=== PATIENT | female | born 1965 | race Caucasian/White ===

== ENCOUNTER 2018-03-31 09:04 | Observation (INO) ==
[2018-03-31] MEDS ORDERED: MORPHINE 4 MG/1 ML VIAL IV STA (09:51)
[2018-03-31] MEDS ORDERED: ONDANSETRON 4 MG/2 ML VIAL IV STA (09:51)
[2018-03-31] MEDS ORDERED: NITROGLYCERIN 2% OINT 1 INCH/GM PACK TOP STA (09:51)
[2018-03-31] MEDS ORDERED: ASPIRIN 325 MG TABLET PO STA (09:51)
[2018-03-31 10:22] LABS: Basophils # 0.1 10*3/uL (0.0-0.2); Basophils % 0.5 % (0.0-0.8); Eosinophils # 0.1 10*3/uL (0.0-0.87); Eosinophils % 0.7 % (0.00-10.9); Hematocrit 43.3 VOL% (35.7-47.0); Hemoglobin 14.7 GM/DL (12.0-16.0); Immature Granulocytes % 0.4 %; Immature Granulocytes Absolute 0.04 #; Lymphocytes # 2.3 10*3/uL (1.4-4.0); Mean Corpuscular HGB Conc 33.9 GM/DL (32-36); Mean Corpuscular Hemoglobin 32 PG (27-34); Mean Corpuscular Volume 93.7 FL (87-102); Mean Platelet Volume 9.4 FL (9.6-12.0); Monocytes # 0.6 10*3/uL (0.11-0.8); Monocytes % 5.8 % (1.7-12.7); Neutrophils # 6.5 10*3/uL (1.4-7.4); Neutrophils % 68.6 % (38.7-73.9); Platelet Count 251 T/CUMM (130-400); Red Blood Count 4.62 MC/CUMM (3.8-5.5); Red Cell Distribution Width 13.8 % (9.3-17.3); White Blood Count 9.5 T/CUMM (4-12)
[2018-03-31 10:31] LABS: Apearance,Urine CLOUDY (Clear); Bacteria,Urine Occasional /HPF (Few); Bilirubin,Urine Negative (Negative); Blood, Urine Negative (Negative); Glucose,Urine (UA) Negative (Negative); Hyaline Casts,Urine 50 /LPF (0-3); Ketones,Urine Negative (Negative); Mucus,Urine Occasional /LPF (Occasional); Nitrite,Urine Negative (Negative); Protein,Urine Negative; RBC,Urine 4 /HPF (0-4); Squamous Epithelial Cell,Urine Moderate /HPF (0-10); Urine Color Yellow (Yellow); Urine Specific Gravity 1.013 (1.001-1.035); Urine Urobilinogen < 2.0 EU/DL (0.2-1.0); WBC,Urine 9 /HPF (0-6)
[2018-03-31 10:32] LABS: PT Patient Result 10.1 SECS; Partial Thromboplastin Time 26.6 SECS (0-40)
[2018-03-31 10:42] LABS: Albumin 4.3 G/DL (3.4-5.0); Bilirubin,Total 0.4 MG/DL (0.2-1.0); Calcium 8.9 MG/DL (8.5-10.1); Osmolality,Calculated 261.7 MOS/KG (273-304); Potassium 3.8 MMOL/L (3.5-5.1); Total Protein 8.3 G/DL (6.4-8.3)
[2018-03-31 10:43] LABS: Barbiturates Screen,Urine Negative (Negative); Benzodiazepines Screen,Urine Positive (Negative); Cannabinoid Screen,Urine Positive (Negative); Opiate Screen,Urine Negative (Negative); Phencyclidine Screen,Urine Negative (Negative)
[2018-03-31] MEDS ORDERED: guaiFENesin/DM ER 600-30 MG TABLET PO PRN (12:30)
[2018-03-31] MEDS ORDERED: ACETAMINOPHEN 325 MG TABLET PO PRN (12:30)
[2018-03-31] MEDS ORDERED: traZODone 50 MG TABLET PO PRN (12:30)
[2018-03-31] MEDS ORDERED: ONDANSETRON 4 MG/2 ML VIAL IV PRN (12:30)
[2018-03-31] MEDS ORDERED: diphenhydrAMINE CAP 25 MG CAPSULE PO PRN (12:30)
[2018-03-31] MEDS ORDERED: DOCUSATE SODIUM 100 MG CAPSULE PO PRN (12:30)
[2018-03-31] MEDS ORDERED: tiZANidine 4 MG TABLET PO PRN (12:35)
[2018-03-31] MEDS ORDERED: ALPRAZolam 0.5 MG TABLET PO PRN (12:35)
[2018-03-31] MEDS ORDERED: cefTRIAXone 1,000 MG in SYRINGE 1 EACH IV SCH (14:00)
[2018-03-31] MEDS: SODIUM CHLORIDE 0.9% 1,000 ML IV SCH ×2 (14:19→19:12)
[2018-03-31] MEDS: PANTOPRAZOLE 40 MG TABLET PO SCH (14:35)
[2018-03-31] MEDS: amLODIPine 5 MG TABLET PO SCH (14:46)
[2018-04-01] MEDS: SODIUM CHLORIDE 0.9% 1,000 ML IV SCH (03:12)
[2018-04-01 06:05] LABS: Basophils # 0.1 10*3/uL (0.0-0.2); Basophils % 0.8 % (0.0-0.8); Eosinophils # 0.1 10*3/uL (0.0-0.87); Eosinophils % 1.7 % (0.00-10.9); Hematocrit 36.9 VOL% (35.7-47.0); Hemoglobin 12.5 GM/DL (12.0-16.0); Immature Granulocytes % 0.5 %; Immature Granulocytes Absolute 0.03 #; Lymphocytes # 2.6 10*3/uL (1.4-4.0); Lymphocytes % 41.2 % (21.3-54.2); Mean Corpuscular HGB Conc 33.9 GM/DL (32-36); Mean Corpuscular Hemoglobin 32 PG (27-34); Mean Corpuscular Volume 94.4 FL (87-102); Mean Platelet Volume 9.7 FL (9.6-12.0); Monocytes # 0.6 10*3/uL (0.11-0.8); Monocytes % 9.3 % (1.7-12.7); Neutrophils % 46.5 % (38.7-73.9); Platelet Count 218 T/CUMM (130-400); Red Blood Count 3.91 MC/CUMM (3.8-5.5); Red Cell Distribution Width 13.9 % (9.3-17.3); White Blood Count 6.3 T/CUMM (4-12)
[2018-04-01 06:46] LABS: Calcium 8.5 MG/DL (8.5-10.1); Osmolality,Calculated 275.5 MOS/KG (273-304); Risk Ratio 3.12; Thyroid Stimulating Hormone 4.67 uIU/ml (0.358-3.74); VLDL CHOLESTEROL 13.8 MG/DL
[2018-04-01] MEDS: PANTOPRAZOLE 40 MG TABLET PO SCH (09:14)
[2018-04-01] MEDS: amLODIPine 5 MG TABLET PO SCH (09:14)
[2018-04-01 11:27] VITALS: BP 103/69
[2018-04-01] MEDS ORDERED: ENOXAPARIN 40 MG/0.4 ML SYRINGE SUBCUT SCH (21:00)
== END 2018-04-01 13:30 | disposition home or self-care (01) ==
LOC: N.EDINP 09:04 → N.ED 09:04 → N.EDINP 14:46 → N.TELES 15:07
PROVIDERS: ADMIT Internal Medicine; ATTEND Internal Medicine

== ENCOUNTER 2022-01-19 09:39 | Inpatient (IN) ==
[2022-01-19] MEDS ORDERED: GLUCAGON 1 MG VIAL IM PRN (12:18)
[2022-01-19] MEDS ORDERED: ENOXAPARIN 40 MG/0.4 ML SYRINGE SUBCUT SCH (12:30)
[2022-01-19] MEDS ORDERED: DEXTROSE 10% 250 ML BAG IV PRN (12:30)
[2022-01-19] MEDS ORDERED: DEXTROSE 5% LACTATED RINGERS 1,000 ML IV SCH (12:30)
[2022-01-19] MEDS ORDERED: DEXTROSE 5% NACL 0.9% 1,000 ML IV SCH (12:30)
[2022-01-19 12:46] LABS: Basophils % 0.2 % (0.0-0.8); Immature Granulocytes % 0.4 %; Immature Granulocytes Absolute 0.02 #; Lymphocytes # 0.4 10*3/uL (1.4-4.0); Lymphocytes % 7.4 % (21.3-54.2); Mean Corpuscular HGB Conc 33.6 GM/DL (32-36); Mean Corpuscular Volume 90.6 FL (87-102); Mean Platelet Volume 10.4 FL (9.6-12.0); Monocytes % 9.3 % (1.7-12.7); Neutrophils % 82.7 % (38.7-73.9); Red Cell Distribution Width 14.5 % (9.3-17.3)
[2022-01-19 12:47] LABS: Hemoglobin 9.4 GM/DL (12.0-16.0); Red Blood Count 3.09 MC/CUMM (3.8-5.5); White Blood Count 5.3 T/CUMM (4-12)
[2022-01-19 12:48] LABS: Platelet Count 137 T/CUMM (130-400)
[2022-01-19 13:03] LABS: Albumin 2.2 G/DL (3.4-5.0); Bilirubin,Total 1.2 MG/DL (0.20-1.00); Calcium 8.2 MG/DL (8.5-10.1); Total Protein 4.8 G/DL (6.4-8.2)
[2022-01-19] MEDS ORDERED: MAGNESIUM SULF RIDER 2 GM/50 ML PREMIX IV ONE (13:14)
[2022-01-19] MEDS ORDERED: POTASSIUM CHLORIDE RIDER 20 MEQ/100 ML PREMIX IV ONE (13:14)
[2022-01-19] MEDS ORDERED: MAGNESIUM SULF RIDER 2 GM/50 ML PREMIX IV PRN (13:16)
[2022-01-19] MEDS ORDERED: POTASSIUM CHLORIDE RIDER 10 MEQ/100 ML PREMIX IV PRN (13:16)
[2022-01-19] MEDS ORDERED: MAGNESIUM SULF RIDER 4 GM/100 ML PREMIX IV PRN (13:16)
[2022-01-19 13:20] LABS: Arterial pH iSTAT 7.389 (7.35-7.45)
[2022-01-19 13:35] LABS: Band Neutrophils 16 % (0-10); Hypochromia Slight; Lymphocytes 8 % (20-55); Metamyelocytes 1 %; Segmented Neutrophils 69 % (50-85); Total Cells Counted 100
[2022-01-19 13:36] LABS: Microcytosis Slight; Platelet Estimate Adequate
[2022-01-19] MEDS ORDERED: POTASSIUM CHLORIDE RIDER 20 MEQ/100 ML PREMIX IV PRN (13:50)
[2022-01-19] MEDS ORDERED: MEROPENEM 2,000 MG in SODIUM CHLORIDE 0.9% 100 ML IV SCH (14:00)
[2022-01-19] MEDS ORDERED: VANCOMYCIN INJ 1,000 MG in SODIUM CHLORIDE 0.9% 250 ML IV SCH (14:00)
[2022-01-19] MEDS ORDERED: MEROPENEM 500 MG in SODIUM CHLORIDE 0.9% 100 ML IV SCH (15:00)
[2022-01-19] MEDS ORDERED: LORazepam 2 MG/1 ML VIAL IV PRN (15:36)
[2022-01-19] MEDS: MORPHINE 2 MG/1 ML SYRINGE IV PRN (15:52)
[2022-01-19 21:10] LABS: ABG Base Excess 1.9 MMOL/L (-2.5-2.5); ABG Oxygen Saturation 88.9 % (95-100); ABG PCO2 34.4 MM HG (35-48); ABG PH 7.473 (7.35-7.45); ABG PO2 57.6 MM HG (80-95); ABG TCO2 22.9 MMOL/L (23-27)
[2022-01-20] MEDS ORDERED: VANCOMYCIN INJ 1,000 MG in SODIUM CHLORIDE 0.9% 250 ML IV SCH (03:00)
[2022-01-20 03:46] LABS: ABG Base Excess 2.2 MMOL/L (-2.5-2.5); ABG HCO3 26.1 MMOL/L (20-26); ABG Oxygen Saturation 90.5 % (95-100); ABG PCO2 39.8 MM HG (35-48); ABG PH 7.431 (7.35-7.45); ABG PO2 63.9 MM HG (80-95); ABG TCO2 22.6 MMOL/L (23-27)
[2022-01-20 03:50] LABS: Basophils % 0.2 % (0.0-0.8); Hematocrit 30.4 VOL% (35.7-47.0); Hemoglobin 10.2 GM/DL (12.0-16.0); Immature Granulocytes % 0.4 %; Immature Granulocytes Absolute 0.04 #; Lymphocytes # 0.8 10*3/uL (1.4-4.0); Mean Corpuscular HGB Conc 33.6 GM/DL (32-36); Mean Corpuscular Volume 91.6 FL (87-102); Mean Platelet Volume 10.9 FL (9.6-12.0); Monocytes % 5.5 % (1.7-12.7); Neutrophils % 85.9 % (38.7-73.9); Platelet Count 142 T/CUMM (130-400); Red Blood Count 3.32 MC/CUMM (3.8-5.5); Red Cell Distribution Width 14.6 % (9.3-17.3); White Blood Count 9.9 T/CUMM (4-12)
[2022-01-20 04:05] LABS: Albumin 2.2 G/DL (3.4-5.0); Calcium 8.4 MG/DL (8.5-10.1); Potassium 3.9 MMOL/L (3.5-5.1); Total Protein 5.5 G/DL (6.4-8.2)
[2022-01-20] MEDS ORDERED: AMIODARONE 450 MG/9 ML VIAL IV ONE (04:09)
[2022-01-20] MEDS ORDERED: AMIODARONE INJ 450 MG in DEXTROSE 5% 241 ML IV SCH (04:11)
[2022-01-20 04:13] LABS: Band Neutrophils 9 % (0-10); Lymphocytes 13 % (20-55); Segmented Neutrophils 73 % (50-85); Total Cells Counted 100
[2022-01-20 04:14] LABS: Microcytosis Slight; Platelet Estimate Adequate
[2022-01-20] MEDS ORDERED: MORPHINE 2 MG/1 ML SYRINGE IV ONE (04:15)
[2022-01-20] MEDS: MORPHINE 2 MG/1 ML SYRINGE IV PRN ×3 (04:46→05:54)
== END 2022-01-20 06:05 | disposition expired | DRG 80 ==
LOC: N.ICU 12:03 → SUATTDRO 12:03
PROVIDERS: ADMIT Internal Medicine; ATTEND Internal Medicine